=== PATIENT | male | born 1985 | race Caucasian/White ===

== ENCOUNTER 2017-09-25 20:12 | Emergency (ER) | payer BC ==
[2017-09-25] MEDS ORDERED: Sodium Chloride 0.9% 1,000 ML IV ONE (21:17)
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
== END 2017-09-25 23:10 | disposition home or self-care (01) ==
LOC: JD.ED 20:12
DX: R55 Syncope and collapse (principal); E86.0 Dehydration; Z88.1 Allergy status to other antibiotic agents
CPT/HCPCS: 96360; 99284; J7040; 99283